=== PATIENT | female | born 1980 | race Caucasian/White ===

== ENCOUNTER 2017-05-06 20:33 | Emergency (ER) | payer OTHER ==
[2017-05-06 21:09] VITALS: BP 144/70
[2017-05-06] MEDS ORDERED: cefTRIAXone VIAL(*) 1,000 MG VIAL IM ONE (21:39)
[2017-05-06] MEDS ORDERED: Clindamycin CAP* 150 MG PO ONE (21:40)
[2017-05-06] MEDS ORDERED: Lidocaine 1% MPF* 2 ML VIAL ONE (21:45)
--- NOTE | 2017-05-06 21:46 | UC ---
Skin Complaint HPI - HPI Summary HPI Summary: 3 days ago noticed sore spot on L upper arm/outer shoulder; since then, skin has gotten very swollen and red. Also has one spot on each forearm that have gotten very large and hard in the last 2 days; denies tenderness or drainage from these bumps. Pt has extensive hx of IVDU, reports last use in mid March , is taking methadone. 7 months , has myesthenia gravis. - History of Current Complaint Chief Complaint: UCSkin Time Seen by Provider: 05/06/17 21:24 Stated Complaint: INFECTED SPOT ON SHOULDER Hx Obtained From: Patient Hx Last Menstrual Period: summer 2016 ?: Yes Onset/Duration: Gradual Onset, Lasting Days Timing: Constant Onset Severity: Mild Current Severity: Moderate Location: Discrete Character: Pain, Redness, Raised, Painful Aggravating Factor(s): Touch Alleviating Factor(s): Nothing Associated Signs & Symptoms: Positive: Rash, Tenderness - Allergy/Home Medications Allergies/Adverse Reactions: Allergies Allergy/AdvReac Type Severity Reaction Status Date / Time No Known Allergies Allergy Verified 05/06/17 20:56 Home Medications: Home Medications Methadone HCl 80 mg PO DAILY 05/06/17 [History Confirmed 05/06/17] Ondansetron [Ondansetron Odt] 8 mg PO BID 05/06/17 [History Confirmed 05/06/17] Review of Systems Constitutional: Negative Skin: Rash Eyes: Negative ENT: Negative Respiratory: Negative Cardiovascular: Negative Gastrointestinal: Negative Genitourinary: Negative Motor: Negative Neurovascular: Negative Musculoskeletal: Negative Neurological: Negative Psychological: Negative Is Patient Immunocompromised?: No All Other Systems Reviewed And Are Negative: Yes PMH/Surg Hx/FS Hx/Imm Hx - Additional Past Medical History Additional PMH: myesthenia gravis Other Psychological History: narcotic addiction - Surgical History Surgical History: Yes Surgery Procedure, Year, and Place: HAND, TONSILS - Family History Known Family History: Positive: Cardiac Disease Negative: Hypertension, Diabetes - Social History Occupation: Unemployed Alcohol Use: None Substance Use Type: Heroin Substance Use Comment - Amount & Last Used: LAST USED 04/16/16 Smoking Status (MU): Current Every Day Smoker Type: Cigarettes Amount Used/How Often: 1-2 cig per day Length of Time of Smoking/Using Tobacco: 15 years Have You Smoked in the Last Year: Yes Physical Exam Triage Information Reviewed: Yes Appearance: Well-Nourished, Pain Distress Vital Signs: Initial Vital Signs Temp 99 F 05/06/17 20:59 Pulse 138 05/06/17 20:59 Resp 20 05/06/17 20:59 BP 144/70 05/06/17 20:59 Pulse Ox 99 05/06/17 20:59 Vital Signs Reviewed: Yes Eye Exam: Normal Eyes: Positive: Conjunctiva Clear ENT: Positive: Normal ENT inspection, Hearing grossly normal, Pharynx normal, TMs normal Dental Exam: Normal Neck exam: Normal Neck: Positive: Supple, Nontender, No Lymphadenopathy Respiratory Exam: Normal Respiratory: Positive: Chest non-tender, Lungs clear, Normal breath sounds, No respiratory distress, No accessory muscle use Cardiovascular: Positive: No Murmur, Tachycardia Musculoskeletal Exam: Normal Musculoskeletal: Positive: Strength Intact, ROM Intact Psychological Exam: Normal Skin Exam: Other - Multiple old scars and track melendrez on bilat arms. On RFA over brachioradialis and on LFA just proximal to antecubital area are firm nodules, approx 4cm in diameter and VERY raised. Not mobile under skin, not TTT , no overlying PWs, do not appear to be using sites. Skin: Positive: Other - Large cellulitis with raised, darker center on L upper arm over humeral area Course/Dx - Diagnoses Provider Diagnoses: Cellulitis L upper arm. Bilat arms skin nodules of uncertain behavior Discharge - Discharge Plan Condition: Stable Disposition: HOME Referrals: No Primary Care Phys,NOPCP [Primary Care Provider] -
== END 2017-05-06 21:57 | disposition home or self-care (01) ==
LOC: UCEAST 20:33
DX: L03.114 Cellulitis of left upper limb (principal); R22.33 Localized swelling, mass and lump, upper limb, bilateral; F11.90 Opioid use, unspecified, uncomplicated; F17.210 Nicotine dependence, cigarettes, uncomplicated
CPT/HCPCS: 96372; 99212; A9270-GY; G0463; J0696

== ENCOUNTER 2017-06-06 21:14 | Inpatient (IN) | payer OTHER ==
[2017-06-06 21:50] LABS: Hematocrit 35 % (35-47); Mean Corpuscular HGB Conc 34 g/dl (31-36); Mean Corpuscular Hemoglobin 29 pg (27-31); Mean Corpuscular Volume 86 fL (80-97); Mean Platelet Volume 10 um3 (7.4-10.4); Platelet Count 243 10^3/ul (150-450); Red Cell Distribution Width 15 % (10.5-15); White Blood Count 20.8 10^3/ul (3.5-10.8)
[2017-06-06] MEDS ORDERED: Oxytocin in LR* 20 UNITS/1,000 ML BAG IVPB ONE (21:52)
[2017-06-06] MEDS ORDERED: Acetaminophen TAB* 325 MG PO PRN (22:18)
[2017-06-06] MEDS ORDERED: Tetan/Diph/Pertus SYR(Tdap)* 0.5 ML SYR(BOOSTRIX) use SYR IM ONE (22:18)
[2017-06-06] MEDS ORDERED: Witch Hazel PAD* JAR TOPICAL PRN (22:18)
[2017-06-06] MEDS ORDERED: Dibucaine 1% 28.35 GM TUBE PR PRN (22:18)
[2017-06-06] MEDS ORDERED: Ibuprofen TAB* 600 MG ONE (22:21)
[2017-06-06 22:28] LABS: EGFR Non-African American 153.7 (>60)
[2017-06-06] MEDS: Ibuprofen TAB* 600 MG PO PRN (22:40)
[2017-06-06] MEDS ORDERED: Oxytocin in LR* 20 UNITS/1,000 ML BAG IVPB SCH (23:00)
[2017-06-07] MEDS ORDERED: Albuterol HFA INHALER* 8 gm MDI INH PRN (00:32)
[2017-06-07] MEDS: Gabapentin CAP(*) 400 MG PO SCH ×3 (01:23→21:19)
[2017-06-07] MEDS: Methadone TAB* 10 MG PO SCH ×2 (08:15→08:32)
[2017-06-07] MEDS: Docusate CAP* 100 MG PO SCH ×3 (08:17→21:19)
[2017-06-07] MEDS: Ibuprofen TAB* 600 MG PO PRN ×2 (08:17→21:18)
[2017-06-07 08:20] LABS: ABS Basophils 0.1 10^3/ul (0-0.2); ABS Eosinophils 0.1 10^3/ul (0-0.6); ABS Lymphocytes 2.4 10^3/ul (1.0-4.8); ABS Monocytes 0.9 10^3/ul (0-0.8); ABS Neutrophils 12.8 10^3/ul (1.5-7.7); ABS Nucleated RBC 0 10^3/ul; Eosinophil % 0.6 % (0-6); Hematocrit 29 % (35-47); Hemoglobin 9.8 g/dl (12.0-16.0); Mean Corpuscular HGB Conc 34 g/dl (31-36); Mean Corpuscular Hemoglobin 29 pg (27-31); Mean Corpuscular Volume 86 fL (80-97); Mean Platelet Volume 10 um3 (7.4-10.4); Nucleated Red Blood Cells % 0.1; Platelet Count 198 10^3/ul (150-450); Red Blood Count 3.32 10^6/ul (4.0-5.4); Red Cell Distribution Width 15 % (10.5-15); White Blood Count 16.3 10^3/ul (3.5-10.8)
[2017-06-07] MEDS ORDERED: Simethicone TAB* 80 MG TAB.CHEW PO SCH (08:30)
[2017-06-07] MEDS: Ferrous Gluconate TAB* 324 MG TAB PO SCH ×2 (09:26→21:19)
[2017-06-08] MEDS: Methadone TAB* 10 MG PO SCH (07:44)
[2017-06-08 08:12] VITALS: BP 105/60
[2017-06-08] MEDS: Ibuprofen TAB* 600 MG PO PRN ×2 (08:36→14:36)
[2017-06-08] MEDS: Gabapentin CAP(*) 400 MG PO SCH (08:37)
[2017-06-08] MEDS: Docusate CAP* 100 MG PO SCH ×2 (08:37→14:36)
[2017-06-08] MEDS: Ferrous Gluconate TAB* 324 MG TAB PO SCH (08:37)
== END 2017-06-08 19:10 | disposition home or self-care (01) | DRG 560 ==
LOC: MCHOBOUT 21:14 → MCHOB 21:17
PROVIDERS: ADMIT Obstetrics & Gynecology; ATTEND Obstetrics & Gynecology
PROC: 10907ZC Drainage of Amniotic Fluid, Therapeutic from Products of Conception, Via Natural or Artificial Opening (ICD-10-PCS; principal; 2017-06-06)
PROC: 10E0XZZ Delivery of Products of Conception, External Approach (ICD-10-PCS; 2017-06-06)
PROC: 0W8NXZZ Division of Female Perineum, External Approach (ICD-10-PCS; 2017-06-06)
PROC: 4A1HX4Z Monitoring of Products of Conception, Cardiac Electrical Activity, External Approach (ICD-10-PCS; 2017-06-06)
DX: O99.324 Drug use complicating childbirth (principal); O60.14X0 Preterm labor third trimester with preterm delivery third trimester, not applicable or unspecified; O62.3 Precipitate labor; F11.90 Opioid use, unspecified, uncomplicated; O99.334 Smoking (tobacco) complicating childbirth; F17.200 Nicotine dependence, unspecified, uncomplicated; Z3A.36 36 weeks gestation of pregnancy; Z37.0 Single live birth; O76 Abnormality in fetal heart rate and rhythm complicating labor and delivery; O90.81 Anemia of the puerperium; O77.0 Labor and delivery complicated by meconium in amniotic fluid
CPT/HCPCS: 36415; 80053; 80307; 85025; 85027; 86592; 86703; 86762; 86850; 86900; 86901; 87340; 88307; A9270-GY

== ENCOUNTER 2018-06-07 14:51 | Emergency (ER) | payer OTHER ==
[2018-06-07 15:25] VITALS: BP 139/61
--- NOTE | 2018-06-07 15:30 | UC ---
Respiratory Complaint HPI - HPI Summary HPI Summary: 38 yo female presents with cough, chest congestion, and pain "in lungs" with coughing. She tells me that about a week ago she developed sinus pain/pressure/ congestion, post nasal drip, sore throat, and a cough. Those symptoms have resolved, but her cough is persisting and is productive at times. She is still smoking daily, but has decreased the amount due to illness. She does have a hx of asthma and has an albuterol inhaler at home, which she has been using with little relief. Denies fever, chills, SOB, chest pain, n/v. - History of Current Complaint Chief Complaint: UCRespiratory Stated Complaint: COUGH Time Seen by Provider: 06/07/18 15:30 Hx Obtained From: Patient Hx Last Menstrual Period: 2 WEEKS AGO Onset/Duration: Gradual Onset Severity Initially: Mild Severity Currently: Moderate Pain Intensity: 8 Pain Scale Used: 0-10 Numeric Character: Cough: Productive - Allergies/Home Medications Allergies/Adverse Reactions: Allergies Allergy/AdvReac Type Severity Reaction Status Date / Time peach Allergy Unknown Verified 06/07/18 15:26 Reaction Details shellfish derived Allergy Unknown Verified 06/07/18 15:26 Reaction Details strawberry Allergy Hives Verified 06/07/18 15:26 Home Medications: Home Medications Cyanocobalamin TAB* [Vitamin B12 TAB*] 06/07/18 [History] Cyclobenzaprine TAB* [Flexeril 10 MG TAB*] 10 mg PO 06/07/18 [History Confirmed 06/07/18] PMH/Surg Hx/FS Hx/Imm Hx - Additional Past Medical History Additional PMH: Past drug addiction Respiratory History: Asthma - Surgical History Surgical History: Yes Surgery Procedure, Year, and Place: HAND, TONSILS - Family History Known Family History: Positive: Cardiac Disease Negative: Hypertension, Diabetes - Social History Lives: With Family Alcohol Use: Occasionally Substance Use Type: None Substance Use Comment - Amount & Last Used: LAST USED 04/16/16 Smoking Status (MU): Current Every Day Smoker Type: Cigarettes Amount Used/How Often: 1-5 per day Length of Time of Smoking/Using Tobacco: 15 years Have You Smoked in the Last Year: Yes - Immunization History Most Recent Influenza Vaccination: winter 2017 Most Recent Pneumonia Vaccination: Unknown Review of Systems All Other Systems Reviewed And Are Negative: Yes Constitutional: Positive: Negative Skin: Positive: Negative Eyes: Positive: Negative ENT: Positive: Negative Respiratory: Positive: Cough Cardiovascular: Positive: Negative Gastrointestinal: Positive: Negative Genitourinary: Positive: Negative Neurovascular: Positive: Negative Neurological: Positive: Negative Psychological: Positive: Negative Physical Exam - Summary Physical Exam Summary: GENERAL: NAD. WDWN. No pain distress. SKIN: No rashes, sores, lesions, or open wounds. HEENT: Head: AT/NC Eyes: Conjunctiva clear without inflammation or discharge. Ears: Hearing grossly normal. TMs intact, no bulging, erythema, or edema. Nose: Nasal mucosa pink and moist. NTTP maxillary and frontal sinus. Throat: Posterior oropharynx without exudates, erythema, or tonsillar enlargement. Uvula midline. NECK: Supple. Nontender. No lymphadenopathy. CHEST: Mild wheezing throughout. No r/r. No accessory muscle use. Breathing comfortably and in no distress. CV: RRR. Without m/r/g. Pulses intact. Cap refill <2seconds NEURO: Alert. PSYCH: Age appropriate behavior. Triage Information Reviewed: Yes Vital Signs: Initial Vital Signs Temp 97.8 F 06/07/18 15:21 Pulse 99 06/07/18 15:21 Resp 16 06/07/18 15:21 BP 139/61 06/07/18 15:21 Pulse Ox 96 06/07/18 15:21 Vital Signs Reviewed: Yes Diagnostic Evaluation - Laboratory O2 Sat by Pulse Oximetry: 96 Respiratory Course/Dx - Course Course Of Treatment: Duoneb: feels better s/p. Able to get a deeper breath. Less wheezing on exam. Suspect bronchitis - will tx with anbx given her hx and have her continue her at home albuterol inhaler. - Differential Dx/Diagnosis Provider Diagnosis: Bronchitis Discharge - Sign-Out/Discharge Documenting (check all that apply): Patient Departure All imaging exams completed and their final reports reviewed: No Studies - Discharge Plan Condition: Stable Disposition: HOME Prescriptions: DOXYcycline CAP(*) [DOXYcycline 100MG CAP(*)] 100 mg PO BID #14 cap Patient Education Materials: Acute Bronchitis (ED) Referrals: Joana Platt MD [Primary Care Provider] - Additional Instructions: If you develop a fever, shortness of breath, chest pain, new or worsening symptoms - please call your PCP or go to the ED. - Billing Disposition and Condition Condition: STABLE Disposition: Home
[2018-06-07] MEDS ORDERED: Albuterol/Ipratropium NEB.SOL* Albuterol 2.5 MG/Ipratropium 0.5 MG 3 ML INH ONE (15:36)
== END 2018-06-07 16:04 | disposition home or self-care (01) ==
LOC: UCEAST 14:51
DX: J40 Bronchitis, not specified as acute or chronic (principal); F17.210 Nicotine dependence, cigarettes, uncomplicated; J45.909 Unspecified asthma, uncomplicated; Z91.013 Allergy to seafood; Z91.018 Allergy to other foods
CPT/HCPCS: 99212; A9270-GY; G0463

== ENCOUNTER 2018-06-12 19:16 | Emergency (ER) | payer OTHER ==
[2018-06-12 19:44] LABS: Influenza A Molecular NEGATIVE (Negative); Influenza B Molecular NEGATIVE (Negative)
--- NOTE | 2018-06-12 20:42 | UC ---
Respiratory Complaint HPI - HPI Summary HPI Summary: The patient is a 38-year-old female who has had a cough and wheezing for about 1 week. She denies any high fever. She was seen here about 5 days ago and started on doxycycline. She states that since then cough is worse. She has nausea vomiting and has had some burning substernal chest pain. He states that she has been vomiting so much she has been unable to tolerate her medicines. She has a remote history of cirrhosis and hepatitis C and intravenous heroin use. She has chronic back pain. - History of Current Complaint Chief Complaint: UCGeneralIllness Stated Complaint: FLU LIKE SYMP Hx Obtained From: Patient Hx Last Menstrual Period: 2 weeks ago Onset/Duration: Gradual Onset, Lasting Days Timing: Constant Severity Initially: Mild Severity Currently: Severe Pain Intensity: 7 Pain Scale Used: 0-10 Numeric Character: Cough: Nonproductive Aggravating Factors: Nothing Alleviating Factors: Nothing Associated Signs And Symptoms: Positive: Wheezing, Nasal Congestion - Allergies/Home Medications Allergies/Adverse Reactions: Allergies Allergy/AdvReac Type Severity Reaction Status Date / Time peach Allergy Unknown Verified 06/12/18 19:23 Reaction Details shellfish derived Allergy Unknown Verified 06/12/18 19:23 Reaction Details strawberry Allergy Hives Verified 06/12/18 19:23 PMH/Surg Hx/FS Hx/Imm Hx Previously Healthy: Yes Respiratory History: Asthma, Bronchitis - Surgical History Surgical History: Yes Surgery Procedure, Year, and Place: HAND, TONSILS - Family History Known Family History: Positive: Cardiac Disease Negative: Hypertension, Diabetes - Social History Alcohol Use: Occasionally Substance Use Type: None Substance Use Comment - Amount & Last Used: LAST USED 04/16/16 Smoking Status (MU): Current Every Day Smoker Type: Cigarettes Amount Used/How Often: 1-5 per day Length of Time of Smoking/Using Tobacco: 15 years Have You Smoked in the Last Year: Yes - Immunization History Most Recent Influenza Vaccination: winter 2017 Most Recent Pneumonia Vaccination: Unknown Review of Systems All Other Systems Reviewed And Are Negative: Yes Constitutional: Positive: Fatigue Skin: Positive: Negative Eyes: Positive: Negative ENT: Positive: Negative Respiratory: Positive: Cough Cardiovascular: Positive: Negative Gastrointestinal: Positive: Vomiting, Nausea Genitourinary: Positive: Negative Motor: Positive: Negative Neurovascular: Positive: Negative Musculoskeletal: Positive: Negative Neurological: Positive: Negative Psychological: Positive: Negative Physical Exam Triage Information Reviewed: Yes Appearance: Well-Appearing, No Pain Distress, Well-Nourished Vital Signs: Initial Vital Signs Temp 98 F 06/12/18 19:18 Pulse 106 06/12/18 19:18 Resp 18 06/12/18 19:18 BP 159/78 06/12/18 19:18 Pulse Ox 100 06/12/18 19:18 Vital Signs Reviewed: Yes Eyes: Positive: Conjunctiva Clear ENT: Positive: Hearing grossly normal, TMs normal, Uvula midline. Negative: Nasal congestion, Nasal drainage, Tonsillar swelling, Tonsillar exudate, Trismus , Muffled voice, Hoarse voice, Dental tenderness, Sinus tenderness Neck: Positive: Supple, Nontender, No Lymphadenopathy Respiratory: Positive: No respiratory distress, No accessory muscle use, Wheezing - mild Cardiovascular: Positive: RRR, No Murmur, Tachycardia Abdomen Description: Positive: Nontender, No Organomegaly. Negative: CVA Tenderness (R), CVA Tenderness (L) Bowel Sounds: Positive: Present Musculoskeletal: Positive: ROM Intact Neurological Exam: Normal Neurological: Positive: Alert Psychological Exam: Normal UC Diagnostic Evaluation - Laboratory O2 Sat by Pulse Oximetry: 100 - normal/not hypoxic - Radiology Radiology Interpretation Completed By: ED Physician Summary of Radiographic Findings: no infiltrate Re-Evaluation - Re-Evaluation First Eval Re-Evaluation Time: 22:34 Change: Unchanged - despite intervention still with severe nausea/vomiting/dry heaves. Pt has not had her methadone for > 24 hours and these symptoms may be due to withdrawal. Will try IV lorazepam. Second Eval Re-Evaluation Time: 22:50 Change: Improved - will d/c after fluids in, decreased nausea after lorazepam Respiratory Course/Dx - Course Course Of Treatment: Pt refuses to go to the ER for further evaluation at this juncture. - Differential Dx/Diagnosis Provider Diagnosis: Bronchitis, Gastritis Discharge - Sign-Out/Discharge Documenting (check all that apply): Patient Departure All imaging exams completed and their final reports reviewed: No - Discharge Plan Condition: Improved Disposition: HOME Prescriptions: Amoxicillin PO (*) [Amoxicillin 875 MG (*)] 875 mg PO BID #14 tab Omeprazole 20 mg PO DAILY #14 capsule. Promethazine TAB* [Phenergan TAB*] 25 mg PO Q6H PRN #12 tab PRN Reason: Nausea Patient Education Materials: Acute Bronchitis (ED), Gastritis (ED) Referrals: Joana Platt MD [Primary Care Provider] - 2 Days Additional Instructions: TO ER FOR NEW OR WORSENING SYMPTOMS stop doxy - Billing Disposition and Condition Condition: IMPROVED Disposition: Home
[2018-06-12] MEDS ORDERED: NS 0.9% 1000 ML** 1,000 ML BOLUS ONE (20:57)
[2018-06-12] MEDS ORDERED: Famotidine IV* 10 MG/ML 2 ML (20 mg) IV SLOW PU ONE (21:36)
[2018-06-12] MEDS ORDERED: Famotidine IV* 10 MG/ML 2 ML (20 mg) ONE (21:38)
[2018-06-12] MEDS ORDERED: Metoclopramide IV* 5 MG/ML 2 ML VIAL IV SLOW PU ONE (21:52)
[2018-06-12] MEDS ORDERED: methylPREDNISolone 125 MG* 2 ML VIAL IV ONE (21:56)
[2018-06-12] MEDS ORDERED: LORazepam INJ* 2 MG/ML 1 ML VIAL IV PUSH ONE (22:31)
[2018-06-12 23:13] VITALS: BP 147/87
--- NOTE | 2018-06-13 13:49 | UC ---
- Progress Note Progress Note: Chest x-ray date June 12, 2018 read by the radiologist as NAD Provider from the same date interpreted as no infiltrate therefore there is no discrepancy. Re-Evaluation - Re-Evaluation First Eval Re-Evaluation Time: 22:34 Change: Unchanged - despite intervention still with severe nausea/vomiting/dry heaves. Pt has not had her methadone for > 24 hours and these symptoms may be due to withdrawal. Will try IV lorazepam. Second Eval Re-Evaluation Time: 22:50 Change: Improved - will d/c after fluids in, decreased nausea after lorazepam Course/Dx - Diagnoses Provider Diagnoses: Bronchitis, Gastritis Discharge - Sign-Out/Discharge Documenting (check all that apply): Patient Departure All imaging exams completed and their final reports reviewed: Yes - Discharge Plan Condition: Improved Disposition: HOME Prescriptions: Amoxicillin PO (*) [Amoxicillin 875 MG (*)] 875 mg PO BID #14 tab Omeprazole 20 mg PO DAILY #14 capsule. Promethazine TAB* [Phenergan TAB*] 25 mg PO Q6H PRN #12 tab PRN Reason: Nausea Patient Education Materials: Gastritis (ED), Acute Bronchitis (ED) Referrals: Joana Platt MD [Primary Care Provider] - 2 Days Additional Instructions: TO ER FOR NEW OR WORSENING SYMPTOMS stop doxy - Billing Disposition and Condition Condition: IMPROVED Disposition: Home
== END 2018-06-12 23:06 | disposition home or self-care (01) ==
LOC: UCEAST 19:16
DX: J40 Bronchitis, not specified as acute or chronic (principal); K29.70 Gastritis, unspecified, without bleeding; F17.210 Nicotine dependence, cigarettes, uncomplicated
CPT/HCPCS: 71046; 96360; 96365; 96374; 99212; G0463; J2060; J2765; J2930

== ENCOUNTER 2018-07-06 10:03 | Emergency (ER) | payer OTHER ==
[2018-07-06 10:29] VITALS: BP 151/75
--- NOTE | 2018-07-06 10:37 | UC ---
FLU HPI - HPI Summary HPI Summary: 38 yo female presents with fever, body aches, and fatigue since yesterday. She tells me that yesterday she felt her symptoms began - took her temperature and it was 100.2F. She took ibuprofen and temp reduced to 98.5F and she felt better. Today she woke and her symptoms were worse - took her temp and it was 102.9F - she took ibuprofen and her symptoms improved and her fever reduced to 98.6F. She is concerned she may have the flu. Denies sore throat, cough, SOB, chest pain, abdominal pain, n/v. - History of Current Complaint Chief Complaint: UCGeneralIllness Stated Complaint: POSS FLU Time Seen by Provider: 07/06/18 10:37 Hx Obtained From: Patient Hx Last Menstrual Period: 06/29/18 Onset/Duration: Sudden Onset Severity Currently: Moderate Severity Initially: Moderate Pain Intensity: 6 Pain Scale Used: 0-10 Numeric - Allergy/Home Medications Allergies/Adverse Reactions: Allergies Allergy/AdvReac Type Severity Reaction Status Date / Time fish derived Allergy Hives Verified 07/06/18 10:17 peach Allergy Swelling Verified 07/06/18 10:17 Of Face,Lips,& Throat pistachio nut Allergy Abdominal Verified 07/06/18 10:17 Pain shellfish derived Allergy Unknown Verified 06/12/18 19:23 Reaction Details strawberry Allergy Hives Verified 06/12/18 19:23 Home Medications: Home Medications Methadone TAB* [Dolophine TAB*] 100 mg PO DAILY 07/06/18 [History Confirmed 01/16] Ondansetron TAB* [Zofran 4 MG Tab*] 4 mg PO Q6H PRN 07/06/18 [History Confirmed 07/06/18] cloNIDine TAB* [Catapres 0.1 MG TAB*] 0.1 mg PO BEDTIME 07/06/18 [History Confirmed 07/06/18] PMH/Surg Hx/FS Hx/Imm Hx Respiratory History: Asthma Psychological History: Anxiety, Bipolar Disorder - Surgical History Surgical History: Yes Surgery Procedure, Year, and Place: HAND, TONSILS - Family History Known Family History: Positive: Cardiac Disease Negative: Hypertension, Diabetes - Social History Lives: With Family Alcohol Use: None Substance Use Type: Other - Former Substance Use Comment - Amount & Last Used: LAST USED 04/16/16 Smoking Status (MU): Current Every Day Smoker Type: Cigarettes Amount Used/How Often: 1-5 per day Length of Time of Smoking/Using Tobacco: 15 years Have You Smoked in the Last Year: Yes - Immunization History Most Recent Influenza Vaccination: winter 2017 Most Recent Pneumonia Vaccination: Unknown Review of Systems All Other Systems Reviewed And Are Negative: Yes Constitutional: Positive: Fever, Fatigue, Other - Body aches Skin: Positive: Negative Eyes: Positive: Negative ENT: Positive: Negative Respiratory: Positive: Negative Cardiovascular: Positive: Negative Gastrointestinal: Positive: Negative Neurovascular: Positive: Negative Neurological: Positive: Negative Psychological: Positive: Negative Physical Exam - Summary Physical Exam Summary: GENERAL: NAD. Hyperverbal. SKIN: No rashes, sores, lesions, or open wounds. HEENT: Head: AT/NC Eyes: EOM intact. Conjunctiva clear without inflammation or discharge. Ears: Hearing grossly normal. TMs intact, no bulging, erythema, or edema. Nose: Nasal mucosa pink and moist. NTTP maxillary and frontal sinus. Throat: Posterior oropharynx without exudates, erythema, or tonsillar enlargement. Uvula midline. NECK: Supple. Nontender. No lymphadenopathy. CHEST: CTAB. No r/r/w. No accessory muscle use. Breathing comfortably and in no distress. CV: RRR. Without m/r/g. Pulses intact. Cap refill <2seconds NEURO: Alert. PSYCH: Age appropriate behavior. Triage Information Reviewed: Yes Vital Signs: Initial Vital Signs Temp 98.6 F 07/06/18 10:21 Pulse 109 07/06/18 10:21 Resp 18 07/06/18 10:21 BP 151/75 07/06/18 10:21 Pulse Ox 97 07/06/18 10:21 Laboratory Tests 07/06/18 10:38 Influenza A (Rapid) Positive A Laboratory Tests 07/06/18 07/06/18 10:38 11:00 POC Urine Color Dark yellow POC Urine Clarity Clear POC Urine pH 6.0 POC Ur Specif [place] >= 1.030 POC Urine Protein 1+ A POC Ur Glucose (UA) Negative POC Urine Ketones Negative POC Urine Blood Negative POC Urine Nitrite Negative POC Urine Bilirubin 1+ A POC Urine Urobilinogen 1.0 POC U Leukocyte Esteras Negative Influenza A (Rapid) Positive A Vital Signs Reviewed: Yes Flu Course/Dx - Course Course Of Treatment: POC flu positive. Rx for tamiflu. - Differential Dx/Diagnosis Provider Diagnosis: Influenza Discharge - Sign-Out/Discharge Documenting (check all that apply): Patient Departure All imaging exams completed and their final reports reviewed: No Studies - Discharge Plan Condition: Stable Disposition: HOME Prescriptions: Oseltamivir CAP* [Tamiflu CAP*] 75 mg PO BID #10 cap Patient Education Materials: Influenza (ED) Referrals: Joana Platt MD [Primary Care Provider] - Additional Instructions: If you develop a fever, shortness of breath, chest pain, new or worsening symptoms - please call your PCP or go to the ED. Your blood pressure was high at todays visit. Please see your primary provider within 4 weeks for recheck and re-evaluation. 1) Rest and drink plenty of fluids! 2) Call your child's supervisor inspecting and let them know that you have the flu - they may want to start your child on medication for the flu as well - Billing Disposition and Condition Condition: STABLE Disposition: Home
[2018-07-06 10:43] LABS: Influenza A Molecular POSITIVE (Negative)
== END 2018-07-06 11:10 | disposition home or self-care (01) ==
LOC: UCEAST 10:03
DX: J10.1 Influenza due to other identified influenza virus with other respiratory manifestations (principal); Z91.018 Allergy to other foods; Z91.013 Allergy to seafood; F17.210 Nicotine dependence, cigarettes, uncomplicated
CPT/HCPCS: 81003; 99212; G0463

== ENCOUNTER 2018-09-08 11:47 | Emergency (ER) | payer OTHER ==
[2018-09-08 11:57] VITALS: BP 152/107
--- NOTE | 2018-09-08 12:27 | UC ---
Throat Pain/Nasal Alvaro HPI - HPI Summary HPI Summary: Patient presents to urgent care with progressive maxillary facial pain thick secretions sore throat for the last 4-5 days. Patient states when she blew her nose this morning it was green mucus and blood. Patient states it hurts her to swallow. No difficulty breathing. No nausea vomiting. Patient took Motrin yesterday but nothing today. Patient states her ears feel full but when she blows her nose right ear "pops "no drainage from the ear. No documented fevers. No abdominal pain. Decreased appetite. Patient states she is not . Medications reviewed this visit. - History of Current Complaint Chief Complaint: UCGeneralIllness Stated Complaint: sinus issues Time Seen by Provider: 09/08/18 12:00 Hx Obtained From: Patient Hx Last Menstrual Period: 06/29/18 ?: No Severity: Moderate Pain Intensity: 7 Pain Scale Used: 0-10 Numeric - Allergies/Home Medications Allergies/Adverse Reactions: Allergies Allergy/AdvReac Type Severity Reaction Status Date / Time fish derived Allergy Hives Verified 07/06/18 10:17 peach Allergy Swelling Verified 09/08/18 11:57 Of Face,Lips,& Throat pistachio nut Allergy Abdominal Verified 09/08/18 11:57 Pain shellfish derived Allergy Unknown Verified 09/08/18 11:57 Reaction Details strawberry Allergy Hives Verified 09/08/18 11:57 PMH/Surg Hx/FS Hx/Imm Hx Previously Healthy: Yes - Surgical History Surgical History: Yes Surgery Procedure, Year, and Place: HAND, TONSILS - Family History Known Family History: Positive: Cardiac Disease, Non-Contributory Negative: Hypertension, Diabetes - Social History Lives: With Family Alcohol Use: Weekly Substance Use Type: Other Substance Use Comment - Amount & Last Used: Opiate dependence- last use on Methadone Smoking Status (MU): Current Every Day Smoker Type: Cigarettes Amount Used/How Often: 1-5 per day Length of Time of Smoking/Using Tobacco: 15 years Have You Smoked in the Last Year: Yes - Immunization History Most Recent Influenza Vaccination: winter 2017 Most Recent Pneumonia Vaccination: Unknown Review of Systems All Other Systems Reviewed And Are Negative: Yes ENT: Positive: Sore Throat, Sinus Congestion, Sinus Pain/Tenderness Is Patient Immunocompromised?: No Physical Exam - Summary Physical Exam Summary: Vital Signs Reviewed: Yes A+Ox3, no distress, congested sounding Eyes: Conjunctiva Clear, JESSIE. EOM intact and full ENT: Hearing grossly normal scant fluid right ear turbiantes inflammed and boggy, thick green secretions, dried blood left nasal passage, + PND, mmoist, uvula midline, no exudate, + diffuse erythema oropharynx Neck: Positive: Supple, no lA Respiratory: Positive: No respiratory distress, No accessory muscle use + CTA throughout no w/r Cardiovascular: RRR nl s1, s2 no m/r CBT <2 sec abd soft + BS nt/nd no guarding, no distension Musculoskeletal Exam: JUNG x 4 without difficulty Strength Intact, ROM Intact Neurological: Positive: Alert, + sensation throughout Psychological: Positive: Normal Response to questions, conversant Skin: Positive: no rash, no ecchymosis Triage Information Reviewed: Yes Vital Signs: Initial Vital Signs Temp 98.3 F 09/08/18 11:52 Pulse 108 09/08/18 11:52 Resp 18 09/08/18 11:52 BP 152/107 09/08/18 11:52 Pulse Ox 97 09/08/18 11:52 Throat Pain/Nasal Course/Dx - Course Course Of Treatment: Ellyn Cisneros | Reference #: [id number] Patient presents to urgent care reporting progressive facial check pain, green secretions from her nose and sore throat. Patient states her teeth ache a little bit in her face feels full and heavy. On exam patient noted be hypertensive. Patient states she is on methadone and do not take it today yet and her blood pressure was high when it happens. Patient states she also did take a decongestant last night. Recommend patient follow up PCP. Patient vital signs otherwise stable. Patient with thick green secretions in her nasal passages and diffuse erythema throat. We'll check rapid strep. Anticipate we' ll start patient denies. Patient precaution. Motrin Tylenol. Hydrate. Return precautions. Patient comfortable in agreement with plan. - Differential Dx/Diagnosis Provider Diagnosis: Rhinosinusitis, Pharyngitis Discharge - Sign-Out/Discharge Documenting (check all that apply): Patient Departure All imaging exams completed and their final reports reviewed: No Studies - Discharge Plan Condition: Stable Disposition: HOME Prescriptions: Amoxicillin PO (*) [Amoxicillin 500 MG CAP*] 500 mg PO Q12H #20 cap Patient Education Materials: Pharyngitis (ED), Rhinosinusitis (ED) Referrals: Joana Platt MD [Primary Care Provider] - Additional Instructions: - Stay well hydrated. Drink plenty of non-alcoholic, non-caffinated beverages. - Alternate ibuprofen (Advil, Motrin) 600mg and Tylenol every 3 hours for pain or fever. Take with food. Do NOT take for more than 4-5 days. - These infections are spread by secretions - do NOT share eating or drinking utensils - clean items you share with other people such as cell phones, computer mouse, TV remote, computer tablets,etc. Once you have been antibiotics for 2 days, change your toothbrush and your pillowcase. - get plenty of restful sleep - humidify the air in the room where you sleep - boil water, run a hot steam shower, vaporizer, cups of water by heat register - okay to take over the counter decongestant and cough medication - contact your doctor or return with questions or concerns - Billing Disposition and Condition Condition: STABLE Disposition: Home
== END 2018-09-08 12:47 | disposition home or self-care (01) ==
LOC: UCEAST 11:47
DX: J32.9 Chronic sinusitis, unspecified (principal); J02.9 Acute pharyngitis, unspecified; Z91.018 Allergy to other foods; Z91.013 Allergy to seafood; F17.210 Nicotine dependence, cigarettes, uncomplicated
CPT/HCPCS: 87651; 99212; G0463

== ENCOUNTER 2019-01-14 15:28 | Emergency (ER) | payer OTHER ==
[2019-01-14 15:46] VITALS: BP 132/97
--- NOTE | 2019-01-14 16:06 | UC ---
Eye Complaint HPI - HPI Summary HPI Summary: Patient is a 38-year-old female who presents to the urgent care with a chief complaint of having left eye irritation. She reports that last night she was having nausea and vomiting and dry cough and this morning when she woke up she noticed this reddish discoloration and left side of the left eye. She denies any pain, he denies any blurred patient will decreased vision or visual changes. She denies any discharge and she denies any pain. She reports sore throat, denies any fevers or chills, has no other complaints. - History of Current Complaint Chief Complaint: UCEye Stated Complaint: LEFT EYE IRRITATION Time Seen by Provider: 01/14/19 15:41 Hx Obtained From: Patient Hx Last Menstrual Period: 3 weeks Onset/Duration: Other - Last night Timing: Constant Severity Initially: Mild Pain Intensity: 1 - Allergies/Home Medications Allergies/Adverse Reactions: Allergies Allergy/AdvReac Type Severity Reaction Status Date / Time fish derived Allergy Hives Verified 01/14/19 15:47 peach Allergy Swelling Verified 01/14/19 15:47 Of Face,Lips,& Throat pistachio nut Allergy Abdominal Verified 01/14/19 15:47 Pain shellfish derived Allergy Unknown Verified 01/14/19 15:47 Reaction Details strawberry Allergy Hives Verified 01/14/19 15:47 PMH/Surg Hx/FS Hx/Imm Hx Previously Healthy: Yes Psychological History: Anxiety - Surgical History Surgical History: Yes Surgery Procedure, Year, and Place: HAND, TONSILS - Family History Known Family History: Positive: Cardiac Disease, Non-Contributory Negative: Hypertension, Diabetes - Social History Alcohol Use: Weekly Substance Use Type: Other Substance Use Comment - Amount & Last Used: Opiate dependence- last use on Methadone Smoking Status (MU): Current Every Day Smoker Type: Cigarettes Amount Used/How Often: 1-5 per day Length of Time of Smoking/Using Tobacco: 15 years Have You Smoked in the Last Year: Yes - Immunization History Most Recent Influenza Vaccination: winter 2017 Most Recent Pneumonia Vaccination: Unknown Review of Systems All Other Systems Reviewed And Are Negative: Yes Constitutional: Positive: Negative Skin: Positive: Negative Eyes: Positive: Eye Redness ENT: Positive: Negative Respiratory: Positive: Negative Cardiovascular: Positive: Negative Gastrointestinal: Positive: Negative Genitourinary: Positive: Negative Motor: Positive: Negative Neurovascular: Positive: Negative Musculoskeletal: Positive: Negative Neurological: Positive: Negative Psychological: Positive: Negative Is Patient Immunocompromised?: No Physical Exam - Summary Physical Exam Summary: Vital signs: Reviewed Gen.: Patient is a well developed and nourished female in no acute distress. Patient is sitting comfortably on the stretcher. Head: Normacephalic and atraumatic Eyes: PERRLA, EOMI x2. Left eye subconjunctival hemorrhage Ears: Right ear canal and TM WNL Left ear canal and TM WNL Nose Nose with dry mucosa and clear discharge. No sinus tenderness and mouth: No pharyngeal erythema with out exudate. Neck: Supple, No bilateral submandibular and anterior cervical lymphadenopathy. No JVD Lungs: CTA B/L CVS: S1 & S2 present. No murmurs appreciated. ABDOMEN: Soft NT w/ positive BS. EXT: FROM x 4 NEURO: A+O X 3 Triage Information Reviewed: Yes Appearance: Well-Appearing Vital Signs: Initial Vital Signs Temp 97.7 F 01/14/19 15:36 Pulse 93 01/14/19 15:36 Resp 16 01/14/19 15:36 BP 132/97 01/14/19 15:36 Pulse Ox 98 01/14/19 15:36 Vital Signs Reviewed: Yes Eye Complaint Course/Dx - Course Course Of Treatment: Rapid strep is negative. The patient has a subconjunctival hemorrhage in the left eye which is likely self-limiting. Therefore the patient will be discharged home with follow-up with PCP. - Differential Dx/Diagnosis Provider Diagnosis: Subconjunctival hemorrhage Discharge ED - Sign-Out/Discharge Documenting (check all that apply): Patient Departure All imaging exams completed and their final reports reviewed: No Studies - Discharge Plan Condition: Stable Disposition: HOME Patient Education Materials: Subconjunctival Hemorrhage (ED) Referrals: Joana Platt MD [Primary Care Provider] - Additional Instructions: Follow-up with PCP. Return to the urgent care if she has any visual changes, any eye discharge or any other complaint. - Billing Disposition and Condition Condition: STABLE Disposition: Home
== END 2019-01-14 16:20 | disposition home or self-care (01) ==
LOC: UCEAST 15:28
DX: H11.32 Conjunctival hemorrhage, left eye (principal); F41.9 Anxiety disorder, unspecified; F17.200 Nicotine dependence, unspecified, uncomplicated
CPT/HCPCS: 87651; 99211; G0463

== ENCOUNTER 2020-04-27 18:15 | Inpatient (IN) ==
[2020-04-28] MEDS ORDERED: NS 0.9% 1000 ml BAG 1,000 ML IV ONE (00:33)
[2020-04-28] MEDS ORDERED: Dexamethasone IV 4 MG/ML VIAL 1 ml VIAL IV SLOW PU ONE (00:33)
[2020-04-28 01:52] LABS: ALT 31 U/L (7-52); AST 36 U/L (13-39); Albumin 3.8 g/dL (3.2-5.2); Albumin/Globulin Ratio 0.9 (1-3); Alkaline Phosphatase 80 U/L (34-104); Anion Gap 11 mmol/L (2-11); BUN/Creatinine Ratio 12.5 (8-20); Blood Urea Nitrogen 4 mg/dL (6-24); C Reactive Protein 145.24 mg/L (<8.01); CO2 Carbon Dioxide 27 mmol/L (22-32); Calcium 9.9 mg/dL (8.6-10.3); Chloride 92 mmol/L (101-111); EGFR African American 278.2 (>60); EGFR Non-African American 229.9 (>60); Globulin 4.1 g/dL (2-4); Glucose 108 mg/dL (70-100); Potassium 3.8 mmol/L (3.5-5.0); Sodium 130 mmol/L (135-145); Total Protein 7.9 g/dL (6.4-8.9)
[2020-04-28 01:56] LABS: HCG Pregnancy < 0.60 mIU/mL
[2020-04-28 01:57] LABS: ABS Basophils 0.1 10^3/ul (0-0.2); ABS Lymphocytes 1.5 10^3/ul (1.0-4.8); ABS Monocytes 0.4 10^3/ul (0-0.8); ABS Neutrophils 5.1 10^3/ul (1.5-7.7); Eosinophil % 0.6 %; Hematocrit 36 % (35-47); Hemoglobin 13.2 g/dL (12.0-16.0); Lymphocyte % 21.3 %; Mean Corpuscular HGB Conc 36 g/dL (31-36); Mean Corpuscular Hemoglobin 35 pg (27-31); Mean Corpuscular Volume 95 fL (80-97); Mean Platelet Volume 9.7 fL (7.4-10.4); Platelet Count 240 10^3/uL (150-450); Red Blood Count 3.82 10^6 /uL (3.70-4.87); Red Cell Distribution Width 13 % (10-15); White Blood Count 7.1 10^3/uL (3.5-10.8)
[2020-04-28] MEDS ORDERED: Orphenadrine Citrate INJ 30 mg/ml 2 ml VIAL (60 mg) IV ONE (02:59)
[2020-04-28 03:50] LABS: Urine Appearance Cloudy; Urine Bilirubin Negative (Negative); Urine Blood 1+ (Negative); Urine Color Yellow; Urine Glucose Negative (Negative); Urine Ketones 1+ (Negative); Urine Nitrite Negative (Negative); Urine Protein Negative (Negative); Urine Specific Gravity 1.003 (1.010-1.030); Urine Urobilinogen Negative (Negative)
[2020-04-28 03:58] LABS: Urine Bacteria 1+ (Absent); Urine Red Blood Cell 1+(3-5/hpf) (Absent); Urine Squamous Epithelial Cell Present (Absent); Urine White Blood Cell Trace(0-5/hpf) (Absent)
[2020-04-28 04:08] LABS: Urine Benzodiazepine Screen None Detected (None Detect); Urine Cannabinoids Screen None Detected (None Detect); Urine Opiates Screen Presumptive Positive (None Detect)
[2020-04-28] MEDS ORDERED: Morphine 4 MG/ML VIAL (1 ml) IV ONE ×2 (07:27→11:37)
[2020-04-28] MEDS ORDERED: cefTAZidime (*) 1 GM in NS 0.9% 50 ML 50 ML IVPB ONE (11:51)
[2020-04-28] MEDS ORDERED: Vancomycin 1,250 MG in NS 0.9% 250 ml 250 ML IVPB ONE (11:51)
[2020-04-28] MEDS ORDERED: metroNIDAZOLE IV 500 MG/100ML 500 MG/100 ML BAG IVPB ONE (11:52)
[2020-04-28 12:15] LABS: INR 1.26 (0.82-1.09)
[2020-04-28] MEDS ORDERED: HYDROmorphone 0.5 MG/0.5 ML SYRINGE IV PRN (13:13)
[2020-04-28] MEDS ORDERED: Vancomycin per Pharmacy 1 EA NOTE FOLLOW UP SCH (14:00)
[2020-04-28] MEDS ORDERED: Gadoteridol (CONTRAST) 279.3 MG/ML 10 ML IV ONE (16:06)
[2020-04-28] MEDS: Nicotine PATCH 14 MG/24 HR PATCH TRANSDERM SCH (18:42)
[2020-04-28] MEDS: HYDROmorphone 1 MG/1 ML SYRINGE IV PRN ×2 (18:42→22:52)
[2020-04-28] MEDS: NS 0.9% 1000 ml BAG 1,000 ML IV SCH (18:42)
[2020-04-28] MEDS: Cefepime 2 GM in Dextrose 2 GM/50 ML BAG IV SCH (18:42)
[2020-04-28] MEDS: Vancomycin 1000 MG in NS 0.9% 250 ML IVPB SCH (22:52)
[2020-04-29] MEDS: HYDROmorphone 1 MG/1 ML SYRINGE IV PRN ×2 (03:04→07:59)
[2020-04-29] MEDS ORDERED: HYDROmorphone 1 MG/1 ML SYRINGE IV ONE (04:44)
[2020-04-29] MEDS: Cefepime 2 GM in Dextrose 2 GM/50 ML BAG IV SCH ×2 (04:57→17:31)
[2020-04-29] MEDS: Vancomycin 1000 MG in NS 0.9% 250 ML IVPB SCH ×3 (05:49→19:22)
[2020-04-29] MEDS: Nicotine PATCH 14 MG/24 HR PATCH TRANSDERM SCH (08:02)
[2020-04-29] MEDS ORDERED: Midazolam 2 mg/2 ml VIAL 1 mg/ml 2 ml VIAL (2 mg) ONE (08:39)
[2020-04-29] MEDS ORDERED: fentaNYL 100 mcg/2 ml 50 MCG/ML VIAL ONE ×7 (08:39→16:08)
[2020-04-29] MEDS ORDERED: Propofol 10 MG/ML 20 ML BTL ONE ×3 (08:40→12:37)
[2020-04-29] MEDS ORDERED: Lidocaine 2% PF 5 ML VIAL ONE (08:40)
[2020-04-29] MEDS ORDERED: Rocuronium 50 mg VIAL 10 mg/ml 5 ml VIAL (50 mg) ONE (08:40)
[2020-04-29] MEDS ORDERED: Bupivacaine 0.25% SDV 30 ML ONE (09:17)
[2020-04-29] MEDS ORDERED: Bacitracin INJECTION 50,000 UNITS ONE ×3 (09:17→14:34)
[2020-04-29] MEDS ORDERED: Lidocaine 1% w EPI 1:100,000 MDV 20 ML VIAL ONE ×3 (09:24→10:07)
[2020-04-29] MEDS ORDERED: ceFAZolin 2 GM PREMIX 2 GM/50 ML BAG ONE (09:57)
[2020-04-29] MEDS ORDERED: Bupivacaine 0.25% SDV PF 10 ML VIAL INJ ONE (10:06)
[2020-04-29] MEDS ORDERED: Remifentanil 2 MG VIAL ONE ×2 (10:08→12:48)
[2020-04-29] MEDS ORDERED: Lidocaine 1% w EPI 1:200,000 SDV 30 ML VIAL ONE (10:08)
[2020-04-29] MEDS ORDERED: Phenylephrine 40 mcg/mL 10mL (400mcg) SYRINGE ONE (12:37)
[2020-04-29] MEDS ORDERED: Propofol 10 mg/ml 100 ML BTL 100 ML ONE (12:54)
[2020-04-29] MEDS ORDERED: DiMENhydriNATE IV 50 mg/ml 1 ml VIAL IV PUSH PRN (13:22)
[2020-04-29] MEDS ORDERED: Ondansetron 4 mg VIAL 2 MG/ML 2 ml VIAL IV PRN (13:22)
[2020-04-29] MEDS ORDERED: Naloxone 0.4 mg VIAL 0.4 mg/ml 1 ml VIAL IV PRN (13:22)
[2020-04-29] MEDS ORDERED: oxyCODONE/Acetamin 5/325 mg TAB PO PRN (13:22)
[2020-04-29] MEDS ORDERED: Vancomycin Trough Check NOTE FOLLOW UP ONE (13:30)
[2020-04-29] MEDS ORDERED: Vancomycin 1,000 MG VIAL ONE (13:44)
[2020-04-29] MEDS ORDERED: Succinylcholine 200 mg VIAL 20 mg/ml 10 ml VIAL (200 mg) ONE (13:48)
[2020-04-29] MEDS ORDERED: Phenylephrine IV 10 MG/ML 1 ml VIAL ONE (13:48)
[2020-04-29] MEDS ORDERED: Acetaminophen IV 1 GM/100ML 100 ML ONE (13:56)
[2020-04-29] MEDS ORDERED: Ondansetron 4 mg VIAL 2 MG/ML 2 ml VIAL ONE (14:37)
[2020-04-29] MEDS ORDERED: HYDROmorphone 1 MG/1 ML SYRINGE ONE (14:37)
[2020-04-29] MEDS: fentaNYL 100 mcg/2 ml 50 MCG/ML VIAL IV PRN ×5 (15:24→16:09)
[2020-04-29] MEDS ORDERED: oxyCODONE/Acetamin 5/325 mg TAB ONE (15:32)
[2020-04-29] MEDS ORDERED: Senna TAB 8.6 mg TAB PO PRN (17:14)
[2020-04-29] MEDS: Morphine ORAL.SOLN 10 mg 2 mg/ml UDC 5 ml (10 mg) PO PRN ×2 (17:25→21:56)
[2020-04-29] MEDS: NS 0.9% 1000 ml BAG 1,000 ML IV SCH (19:47)
[2020-04-29] MEDS: Morphine ER 30 mg TAB ** extended release PO SCH (20:25)
[2020-04-30] MEDS: Vancomycin 1000 MG in NS 0.9% 250 ML IVPB SCH ×4 (02:17→19:28)
[2020-04-30] MEDS: Calcium Carb (TUMS) 500 mg CHEW TAB PO PRN (02:18)
[2020-04-30] MEDS: Morphine ORAL.SOLN 10 mg 2 mg/ml UDC 5 ml (10 mg) PO PRN ×5 (02:18→20:40)
[2020-04-30] MEDS: Nicotine GUM 2MG FRUIT FLAVOR PO PRN (03:06)
[2020-04-30] MEDS: Cefepime 2 GM in Dextrose 2 GM/50 ML BAG IV SCH (04:43)
[2020-04-30] MEDS: Morphine ER 30 mg TAB ** extended release PO SCH ×3 (08:06→23:41)
[2020-04-30] MEDS: Nicotine PATCH 14 MG/24 HR PATCH TRANSDERM SCH (08:08)
[2020-04-30] MEDS ORDERED: Influenza VAC *QUAD* 2020-21* 0.5 ML SYRINGE IM ONE (09:00)
[2020-04-30 09:50] LABS: ABS Basophils 0.1 10^3/ul (0-0.2); ABS Lymphocytes 1.8 10^3/ul (1.0-4.8); ABS Monocytes 0.6 10^3/ul (0-0.8); ABS Neutrophils 2.9 10^3/ul (1.5-7.7); Eosinophil % 0.6 %; Hematocrit 29 % (35-47); Hemoglobin 10.2 g/dL (12.0-16.0); Lymphocyte % 33.4 %; Mean Corpuscular HGB Conc 36 g/dL (31-36); Mean Corpuscular Hemoglobin 34 pg (27-31); Mean Corpuscular Volume 96 fL (80-97); Mean Platelet Volume 9.2 fL (7.4-10.4); Platelet Count 166 10^3/uL (150-450); Red Blood Count 2.96 10^6 /uL (3.70-4.87); Red Cell Distribution Width 12 % (10-15); White Blood Count 5.5 10^3/uL (3.5-10.8)
[2020-04-30 10:07] LABS: BUN/Creatinine Ratio 17.6 (8-20); Calcium 8.4 mg/dL (8.6-10.3); EGFR African American 259.4 (>60); EGFR Non-African American 214.4 (>60); Potassium 3.6 mmol/L (3.5-5.0)
[2020-04-30] MEDS ORDERED: Potassium Chlor 20 meq TAB.ER PO ONE (11:45)
[2020-04-30] MEDS: Magnesium Hydroxide LIQ 30 ML UDC PO PRN (15:40)
[2020-04-30] MEDS ORDERED: Vancomycin Trough Check NOTE FOLLOW UP ONE (17:30)
[2020-04-30 18:41] LABS: EGFR African American 228.1 (>60); EGFR Non-African American 188.5 (>60)
[2020-04-30 19:01] LABS: Vancomycin Trough 9.6 mcg/mL
[2020-05-01] MEDS: Morphine ORAL.SOLN 10 mg 2 mg/ml UDC 5 ml (10 mg) PO PRN ×6 (00:30→22:34)
[2020-05-01] MEDS: Vancomycin 1,250 MG in NS 0.9% 250 ml 250 ML IVPB SCH ×3 (03:50→20:20)
[2020-05-01] MEDS: Calcium Carb (TUMS) 500 mg CHEW TAB PO PRN ×2 (03:55→08:12)
[2020-05-01] MEDS: Morphine ER 30 mg TAB ** extended release PO SCH ×2 (07:56→16:15)
[2020-05-01] MEDS: Nicotine PATCH 14 MG/24 HR PATCH TRANSDERM SCH (07:56)
[2020-05-01] MEDS ORDERED: Cyanocobalamin INJ 1,000 MCG/ML VIAL 1 ML VIAL IM SCH (09:00)
[2020-05-01] MEDS ORDERED: Influenza VAC *QUAD* 2020-21* 0.5 ML SYRINGE IM ONE (09:00)
[2020-05-01] MEDS: Senna TAB 8.6 mg TAB PO SCH (22:35)
[2020-05-02] MEDS: Morphine ER 30 mg TAB ** extended release PO SCH ×3 (00:22→16:24)
[2020-05-02] MEDS: Magnesium Hydroxide LIQ 30 ML UDC PO PRN (03:59)
[2020-05-02] MEDS: Vancomycin 1,250 MG in NS 0.9% 250 ml 250 ML IVPB SCH ×2 (03:59→12:24)
[2020-05-02] MEDS: Morphine ORAL.SOLN 10 mg 2 mg/ml UDC 5 ml (10 mg) PO PRN ×6 (04:30→22:21)
[2020-05-02 05:53] LABS: ABS Basophils 0.1 10^3/ul (0-0.2); ABS Eosinophils 0.2 10^3/ul (0-0.6); ABS Lymphocytes 2.1 10^3/ul (1.0-4.8); ABS Monocytes 0.5 10^3/ul (0-0.8); ABS Neutrophils 3.1 10^3/ul (1.5-7.7); Eosinophil % 3.1 %; Hematocrit 32 % (35-47); Hemoglobin 11.1 g/dL (12.0-16.0); Lymphocyte % 34.9 %; Mean Corpuscular HGB Conc 35 g/dL (31-36); Mean Corpuscular Hemoglobin 34 pg (27-31); Mean Corpuscular Volume 96 fL (80-97); Mean Platelet Volume 8.1 fL (7.4-10.4); Platelet Count 229 10^3/uL (150-450); Red Blood Count 3.31 10^6 /uL (3.70-4.87); Red Cell Distribution Width 12 % (10-15); White Blood Count 5.9 10^3/uL (3.5-10.8)
[2020-05-02] MEDS: Enoxaparin 40 MG/0.4 ML SYR SUBCUT SCH (08:38)
[2020-05-02] MEDS: Nicotine PATCH 14 MG/24 HR PATCH TRANSDERM SCH (08:39)
[2020-05-02] MEDS ORDERED: Influenza VAC *QUAD* 2020-21* 0.5 ML SYRINGE IM ONE (09:00)
[2020-05-02] MEDS ORDERED: Vancomycin Trough Check NOTE FOLLOW UP ONE (11:00)
[2020-05-02 11:37] LABS: EGFR African American 221.4 (>60)
[2020-05-02 11:47] LABS: Vancomycin Trough 13.7 mcg/mL
[2020-05-02] MEDS: Vancomycin 1000 MG in NS 0.9% 250 ML IVPB SCH (18:48)
[2020-05-02] MEDS: Senna TAB 8.6 mg TAB PO SCH (20:17)
[2020-05-03] MEDS: Magnesium Hydroxide LIQ 30 ML UDC PO PRN (00:27)
[2020-05-03] MEDS: Morphine ER 30 mg TAB ** extended release PO SCH ×3 (00:27→15:45)
[2020-05-03] MEDS: Vancomycin 1000 MG in NS 0.9% 250 ML IVPB SCH ×5 (00:27→23:09)
[2020-05-03] MEDS: Nicotine GUM 2MG FRUIT FLAVOR PO PRN ×3 (00:53→14:38)
[2020-05-03] MEDS: Morphine ORAL.SOLN 10 mg 2 mg/ml UDC 5 ml (10 mg) PO PRN ×4 (03:02→20:50)
[2020-05-03 06:02] LABS: ABS Basophils 0.1 10^3/ul (0-0.2); ABS Eosinophils 0.3 10^3/ul (0-0.6); ABS Lymphocytes 1.9 10^3/ul (1.0-4.8); ABS Monocytes 0.7 10^3/ul (0-0.8); ABS Neutrophils 4.4 10^3/ul (1.5-7.7); Eosinophil % 3.7 %; Hematocrit 32 % (35-47); Hemoglobin 11.3 g/dL (12.0-16.0); Lymphocyte % 25.7 %; Mean Corpuscular HGB Conc 35 g/dL (31-36); Mean Corpuscular Hemoglobin 34 pg (27-31); Mean Corpuscular Volume 97 fL (80-97); Mean Platelet Volume 8.3 fL (7.4-10.4); Platelet Count 254 10^3/uL (150-450); Red Blood Count 3.33 10^6 /uL (3.70-4.87); Red Cell Distribution Width 12 % (10-15); White Blood Count 7.5 10^3/uL (3.5-10.8)
[2020-05-03 06:18] LABS: BUN/Creatinine Ratio 12.5 (8-20); Calcium 8.6 mg/dL (8.6-10.3); EGFR Non-African American 177.7 (>60)
[2020-05-03] MEDS: Polyethylene Glycol 3350 17 GM PACKET PO SCH (08:32)
[2020-05-03] MEDS: Enoxaparin 40 MG/0.4 ML SYR SUBCUT SCH (08:33)
[2020-05-03] MEDS: Nicotine PATCH 14 MG/24 HR PATCH TRANSDERM SCH (08:37)
[2020-05-03] MEDS ORDERED: Influenza VAC *QUAD* 2020-21* 0.5 ML SYRINGE IM ONE (09:00)
[2020-05-03 10:53] LABS: C Reactive Protein 15.02 mg/L (<8.01)
[2020-05-03] MEDS: Calcium Carb (TUMS) 500 mg CHEW TAB PO PRN (13:28)
[2020-05-03] MEDS ORDERED: Nicotine PATCH 21 MG/24 HR PATCH TRANSDERM PRN (17:59)
[2020-05-03] MEDS: Senna TAB 8.6 mg TAB PO SCH (20:43)
[2020-05-04] MEDS: Morphine ER 30 mg TAB ** extended release PO SCH ×3 (00:03→16:37)
[2020-05-04] MEDS: Morphine ORAL.SOLN 10 mg 2 mg/ml UDC 5 ml (10 mg) PO PRN ×7 (00:04→22:38)
[2020-05-04] MEDS: Vancomycin 1000 MG in NS 0.9% 250 ML IVPB SCH ×4 (06:18→21:46)
[2020-05-04] MEDS: Enoxaparin 40 MG/0.4 ML SYR SUBCUT SCH (08:20)
[2020-05-04] MEDS: Polyethylene Glycol 3350 17 GM PACKET PO SCH (08:21)
[2020-05-04] MEDS ORDERED: Vancomycin Trough Check NOTE FOLLOW UP ONE (11:30)
[2020-05-04 13:19] LABS: EGFR African American 250.8 (>60); EGFR Non-African American 207.3 (>60)
[2020-05-04] MEDS: Morphine ER 15 mg TAB ** extended release PO SCH (17:13)
[2020-05-04] MEDS: Senna TAB 8.6 mg TAB PO SCH (21:47)
[2020-05-05] MEDS: Morphine ER 15 mg TAB ** extended release PO SCH ×3 (00:34→16:32)
[2020-05-05] MEDS: Vancomycin 1000 MG in NS 0.9% 250 ML IVPB SCH ×3 (05:48→14:08)
[2020-05-05] MEDS: Morphine ORAL.SOLN 10 mg 2 mg/ml UDC 5 ml (10 mg) PO PRN ×4 (06:21→18:58)
[2020-05-05] MEDS: Enoxaparin 40 MG/0.4 ML SYR SUBCUT SCH (07:51)
[2020-05-05] MEDS: Polyethylene Glycol 3350 17 GM PACKET PO SCH (08:41)
[2020-05-05] MEDS: Calcium Carb (TUMS) 500 mg CHEW TAB PO PRN (10:39)
[2020-05-05 16:14] VITALS: BP 112/60
[2020-05-06] MEDS ORDERED: Vancomycin Trough Check NOTE FOLLOW UP ONE (05:30)
== END 2020-05-05 19:25 | disposition home or self-care (01) | DRG 310 ==
LOC: ED 18:15 → MEDTELE 04-28 13:09 → ICU 04-29 17:10 → SSU 04-30 14:45
PROVIDERS: ADMIT Internal Medicine; ATTEND Internal Medicine